=== PATIENT | male | born 1975 | race Caucasian/White ===

== ENCOUNTER 2020-01-25 14:36 | Inpatient (IN) ==
[~2020-01-25 14:36] MED LIST: ACETAMINOPHEN 325 MG TABLET PO PRN; ALUMINUM/MAGNES/SIMETH MAX STR 30 ML UDCUP PO PRN; BISACODYL 5 MG TABLET PO PRN; CALCIUM CARBONATE CHEW 500 MG TABLET PO PRN; HEPARIN 5,000 UNIT/1 ML VIAL ONE; LACTULOSE 20 GM/30 ML UDCUP PO PRN; LIDOCAINE 1% 20 ML VIAL ONE; MAGNESIUM SULF RIDER 2 GM in PREMIX 1 EACH IV PRN; MAGNESIUM SULF RIDER 4 GM in PREMIX 1 EACH IV PRN; MIDAZOLAM 2 MG/2 ML VIAL ONE; MORPHINE 4 MG/1 ML VIAL IV PRN; SIMETHICONE CHEW 125 MG TABLET PO PRN; fentaNYL 100 MCG/2 ML VIAL ONE
[2020-01-25] MEDS ORDERED: TIROFIBAN 5,000 MCG/100 ML PREMIX IV ONE (14:40)
[2020-01-25] MEDS ORDERED: HEPARIN 5,000 UNIT/1 ML VIAL ONE (14:45)
[2020-01-25] MEDS ORDERED: TIROFIBAN 5,000 MCG/100 ML PREMIX IV SCH (15:00)
[2020-01-25] MEDS ORDERED: TICAGRELOR 90 MG TABLET ONE (15:06)
[2020-01-25] MEDS ORDERED: SODIUM CHLORIDE 0.9% 1,000 ML IV SCH (16:00)
[2020-01-25] MEDS: ONDANSETRON 4 MG/2 ML VIAL IV PRN ×2 (18:26→22:49)
[2020-01-25 18:31] LABS: CKMB % 11.7 %
[2020-01-25 19:02] LABS: Risk Ratio 3.96; VLDL CHOLESTEROL 25.4 MG/DL
[2020-01-25 20:41] LABS: CKMB % 13.7 %
[2020-01-25] MEDS: carvediloL 3.125 MG TABLET PO SCH (21:04)
[2020-01-25] MEDS: ROSUVASTATIN 20 MG TABLET PO SCH (21:04)
[2020-01-25] MEDS: TICAGRELOR 90 MG TABLET PO SCH (21:04)
[2020-01-25 23:47] LABS: CKMB % 14.5 %
[2020-01-26 00:07] LABS: Troponin I 47.7 NG/ML (0.00-0.045)
[2020-01-26 04:02] LABS: Basophils % 0.2 % (0.0-0.8); Eosinophils # 0.1 10*3/uL (0.0-0.87); Eosinophils % 0.7 % (0.00-10.9); Hematocrit 43.7 VOL% (42.0-52.0); Hemoglobin 14.6 GM/DL (14.0-18.0); Immature Granulocytes % 0.6 %; Lymphocytes % 16.5 % (21.2-54.2); Mean Corpuscular HGB Conc 33.4 GM/DL (32-36); Mean Corpuscular Volume 89.7 FL (87-102); Mean Platelet Volume 10.3 FL (9.6-12.0); Monocytes % 4.7 % (1.7-12.7); Neutrophils % 77.3 % (38.7-73.9); Platelet Count 281 T/CUMM (130-400); Red Blood Count 4.87 MC/CUMM (3.8-5.5); Red Cell Distribution Width 14.5 % (9.3-17.3)
[2020-01-26 06:11] LABS: Albumin 3.5 G/DL (3.4-5.0); Bilirubin,Total 1.3 MG/DL (0.2-1.0); Calcium 9.3 MG/DL (8.5-10.1); Osmolality,Calculated 275.7 MOS/KG (273-304); Thyroid Stimulating Hormone 1.18 uIU/ml (0.358-3.74); Total Protein 7.3 G/DL (6.4-8.3)
[2020-01-26 06:27] LABS: Troponin I 58.9 NG/ML (0.00-0.045)
[2020-01-26] MEDS: POTASSIUM CHLORIDE 20 MEQ TABLET PO PRN ×2 (07:34→09:52)
[2020-01-26] MEDS: carvediloL 3.125 MG TABLET PO SCH ×3 (08:12→20:57)
[2020-01-26] MEDS: PANTOPRAZOLE 40 MG TABLET PO SCH (08:12)
[2020-01-26] MEDS: ASPIRIN EC 81 MG TABLET PO SCH (08:12)
[2020-01-26] MEDS: TICAGRELOR 90 MG TABLET PO SCH ×2 (08:12→20:58)
[2020-01-26] MEDS: ENOXAPARIN 40 MG/0.4 ML SYRINGE SUBCUT SCH (08:13)
[2020-01-26 11:35] LABS: Troponin I 49.7 NG/ML (0.00-0.045)
[2020-01-26 14:35] LABS: CKMB % 12.8 %
[2020-01-26 14:41] LABS: Troponin I 43.6 NG/ML (0.00-0.045)
[2020-01-26] MEDS: ROSUVASTATIN 20 MG TABLET PO SCH (20:57)
[2020-01-26] MEDS: VITAMIN E 400 UNIT CAPSULE PO SCH (20:58)
[2020-01-27 06:04] LABS: Basophils # 0.1 10*3/uL (0.0-0.2); Basophils % 0.3 % (0.0-0.8); Eosinophils # 0.2 10*3/uL (0.0-0.87); Eosinophils % 1.5 % (0.00-10.9); Hematocrit 44.4 VOL% (42.0-52.0); Hemoglobin 14.8 GM/DL (14.0-18.0); Immature Granulocytes % 0.5 %; Immature Granulocytes Absolute 0.07 #; Lymphocytes % 20.3 % (21.2-54.2); Mean Corpuscular HGB Conc 33.3 GM/DL (32-36); Mean Corpuscular Volume 90.2 FL (87-102); Mean Platelet Volume 10.2 FL (9.6-12.0); Monocytes % 6.2 % (1.7-12.7); Neutrophils % 71.2 % (38.7-73.9); Platelet Count 236 T/CUMM (130-400); Red Blood Count 4.92 MC/CUMM (3.8-5.5); Red Cell Distribution Width 14.6 % (9.3-17.3); White Blood Count 14.8 T/CUMM (4-12)
[2020-01-27 06:36] LABS: Albumin 3.3 G/DL (3.4-5.0); Bilirubin,Direct 0.18 MG/DL (0.0-0.20); Bilirubin,Indirect 1.6 MG/DL (0.0-1.0); Bilirubin,Total 1.8 MG/DL (0.2-1.0); Total Protein 7.3 G/DL (6.4-8.3)
[2020-01-27 06:38] LABS: CKMB % 5.1 %; Calcium 9.2 MG/DL (8.5-10.1); Osmolality,Calculated 276.5 MOS/KG (273-304)
[2020-01-27 06:44] LABS: Troponin I 29.1 NG/ML (0.00-0.045)
[2020-01-27 08:13] VITALS: BP 102/67
[2020-01-27] MEDS ORDERED: OLMESARTAN 20 MG TABLET PO SCH (09:00)
[2020-01-27] MEDS: TICAGRELOR 90 MG TABLET PO SCH (09:31)
[2020-01-27] MEDS: ENOXAPARIN 40 MG/0.4 ML SYRINGE SUBCUT SCH (09:31)
[2020-01-27] MEDS: PANTOPRAZOLE 40 MG TABLET PO SCH (09:31)
[2020-01-27] MEDS: carvediloL 3.125 MG TABLET PO SCH (09:31)
[2020-01-27] MEDS: ASPIRIN EC 81 MG TABLET PO SCH (09:32)
[2020-01-27] MEDS: VITAMIN E 400 UNIT CAPSULE PO SCH (09:32)
== END 2020-01-27 12:24 | disposition home or self-care (01) | DRG 247 ==
LOC: N.CL 14:36 → N.ICU 16:46 → N.TELEN 01-26 15:19
PROVIDERS: ADMIT Internal Medicine Cardiovascular Disease; ATTEND Internal Medicine Cardiovascular Disease
PROC: CLCCHCL (ICD-10-PCS; 2020-01-25 15:15)